=== PATIENT | female | born 1950 | race Caucasian/White ===

== ENCOUNTER 2017-02-25 04:01 | Inpatient (IN) | payer MEDICARE, MEDICAID ==
[~2017-02-25] VITALS: Ht 152.4 cm; Wt 62.6 kg
[~2017-02-25 04:01] MED LIST: AMLO10TA80 PO; ASPI-1159 PO; FOLI1CAP6 PO; NITR0.4T49 SL; PROT40 PO; SIMV20TA6 PO
[2017-02-25] MEDS ORDERED: ONDANSETRON HCL 4MG/2ML VIAL IV STA (04:47)
[2017-02-25 05:45] LABS: HEMATOCRIT. 23.3 % (36.0-48.0); HEMOGLOBIN. 8.1 g/dL (12.0-16.0); MEAN CORPUSCULAR HEMOGLOBIN 33.6 pg (28.0-32.0); MEAN CORPUSCULAR VOLUME 97.2 fL (81.0-99.0); MEAN PLATELET VOLUME 8.2 fl (7.4-10.4); PLATELET 138 x1000/uL (130-400); RED CELL DISTRIBUTION WIDTH 13.9 % (11.6-14.6)
[2017-02-25 05:51] LABS: INR 1.1; PROTHROMBIN TIME 11.8 sec (9.4-11.6)
[2017-02-25 06:02] LABS: CARBON DIOXIDE 25 mEq/L (21-32); CHLORIDE 84 mEq/L (98-107)
[2017-02-25 06:56] LABS: BG BASE EXCESS 4.2 mmol/L (-2.0-2.0); BG CARBOXYHEMOGLOBIN 1.2 % (0.5-1.5); BG DEOXYHEMOGLOBIN 0.6 % (0.0-5.0); BG FRACTION INSPIRED OXYGEN 50; BG HCO3 ACT 29.6 mmol/L (22.0-26.0); BG METHEMOGLOBIN 0.3 % (0.0-1.5); BG OXYGEN SATURATION 99.4 % (92.0-98.5); BG OXYHEMOGLOBIN 97.9 % (94.0-97.0); BG PCO2 47.5 mmHg (35.0-45.0); BG PH 7.413 (7.350-7.450); BG PO2 203.4 mmHg (75.0-100.0); BG SAMPLE SITE LEFT RADIAL; BG TIDAL VOLUME(mL) 600 mL; BG TOTAL HEMOGLOBIN 12.9 g/dL (12.0-18.0); BG VENT MODE VENT - A/C; BG VENT RATE 16 set
[2017-02-25] MEDS ORDERED: DEXTROSE 50% WATER 50ML SYRINGE IV ONE (09:35)
[2017-02-25] MEDS ORDERED: DEXTROSE 50% WATER 50ML SYRINGE IV NR (09:36)
[2017-02-25] MEDS ORDERED: NITROGLYCERIN 0.4MG TABLET SL SL PRN (10:00)
[2017-02-25] MEDS ORDERED: AMLODIPINE 10MG TABLET PO SCH (10:15)
[2017-02-25] MEDS ORDERED: MULTIVITAMINS,THER W-MINERALS TABLET PO SCH (10:30)
[2017-02-25 11:00] VITALS: BP 152/135
[2017-02-25 11:03] LABS: PLATELET ESTIMATE NORMAL
[2017-02-25 11:10] VITALS: BP 152/135
[2017-02-25 12:00] VITALS: BP 169/79
[2017-02-25] MEDS: ASPIRIN 81MG TABLET PO SCH (14:14)
[2017-02-25] MEDS: AMLODIPINE 10MG TABLET PO SCH (14:14)
[2017-02-25] MEDS: PANTOPRAZOLE 40MG DR TABLET PO SCH (14:14)
[2017-02-25] MEDS: FOLIC ACID/VITAMIN B COMP W-C TABLET PO SCH (14:14)
[2017-02-25 16:00] VITALS: BP 187/75
[2017-02-25 20:00] VITALS: BP 177/66
[2017-02-25] MEDS: MORPHINE SULFATE 4 MG/ML CPJ (NOT FOR IM USE) IV PRN (20:52)
[2017-02-25] MEDS ORDERED: NON FORMULARY PATIENT HOME MED EA PO SCH (21:00)
[2017-02-26] VITALS: BP 191/66
[2017-02-26] MEDS ORDERED: ZOLPIDEM TARTRATE 5MG TABLET PO PRN
[2017-02-26] MEDS ORDERED: DEXTROSE 50% WATER 50ML SYRINGE IV PRN
[2017-02-26] MEDS: HYDROCODONE/ACETAMINOPHEN 10/325MG TABLET PO PRN ×2 (01:12→06:01)
[2017-02-26] MEDS: ATORVASTATIN CALCIUM 10MG TABLET PO SCH ×2 (01:12→21:10)
[2017-02-26 04:00] VITALS: BP 177/66
[2017-02-26 06:19] LABS: HEMATOCRIT. 21.3 % (36.0-48.0); HEMOGLOBIN. 7.5 g/dL (12.0-16.0); MEAN CORPUSCULAR HEMOGLOBIN 33.6 pg (28.0-32.0); RED BLOOD CELL COUNT 2.22 mill/uL (4.2-5.4); RED CELL DISTRIBUTION WIDTH 14.2 % (11.6-14.6)
[2017-02-26] MEDS: BLOOD SUGAR DIAGNOSTIC STRIP TEST SCH ×4 (07:40→21:24)
[2017-02-26 08:00] VITALS: BP 181/73
[2017-02-26] MEDS: INSULIN LISPRO 100 UNITS/ML SUBCUT SCH ×4 (08:10→21:24)
[2017-02-26] MEDS ORDERED: ASPIRIN 81MG EC TABLET PO SCH (09:00)
[2017-02-26] MEDS ORDERED: VITAMIN B COMP W C PO SCH (09:00)
[2017-02-26] MEDS ORDERED: FOLIC ACID PO SCH (09:00)
[2017-02-26] MEDS ORDERED: [UNRECOGNIZED DRUG - OTHER] PO SCH (09:00)
[2017-02-26] MEDS ORDERED: PANTOPRAZOLE 40MG DR TABLET PO SCH (09:00)
[2017-02-26] MEDS: AMLODIPINE 10MG TABLET PO SCH (09:12)
[2017-02-26] MEDS: ASPIRIN 81MG TABLET PO SCH (09:12)
[2017-02-26] MEDS: FOLIC ACID/VITAMIN B COMP W-C TABLET PO SCH (09:12)
[2017-02-26] MEDS: PANTOPRAZOLE 40MG DR TABLET PO SCH (09:13)
[2017-02-26 10:54] LABS: PLATELET 151 x1000/uL (130-400); PLATELET ESTIMATE NORMAL
[2017-02-26 10:55] LABS: MEAN PLATELET VOLUME 9.1 fl (7.4-10.4)
[2017-02-26 12:00] VITALS: BP 147/63
[2017-02-26] MEDS ORDERED: LIDOCAINE HCL 1% 20ML VIAL (Pyxis) INJ ONE (14:08)
[2017-02-26 16:00] VITALS: BP 161/74
[2017-02-26 20:00] VITALS: BP 176/77
[2017-02-26] MEDS: MORPHINE SULFATE 4 MG/ML CPJ (NOT FOR IM USE) IV PRN (21:11)
[2017-02-26] MEDS: EPOETIN ALFA 10000UNITS/ML VIAL SUBCUT SCH (21:26)
[2017-02-27] VITALS (9 sets, daily range): BP systolic 100–193; BP diastolic 52–81
[2017-02-27] MEDS: HYDROCODONE/ACETAMINOPHEN 10/325MG TABLET PO PRN ×2 (01:21→08:18)
[2017-02-27 07:36] LABS: BASOPHILS % 0.4 % (0.0-2.0); EOSINOPHILS % 4.2 % (0.0-5.0); LYMPHOCYTES % 17.9 % (20.0-50.0); MEAN CORPUSCULAR HEMOGLOBIN 33.6 pg (28.0-32.0); MONOCYTES % 10.4 % (2.0-8.0); NEUTROPHILS % 67.1 % (40.0-76.0); PLATELET 174 x1000/uL (130-400); RED BLOOD CELL COUNT 2.03 mill/uL (4.2-5.4); RED CELL DISTRIBUTION WIDTH 13.8 % (11.6-14.6)
[2017-02-27] MEDS: BLOOD SUGAR DIAGNOSTIC STRIP TEST SCH ×4 (07:40→21:00)
[2017-02-27 07:53] LABS: HEMATOCRIT. 19.5 % (36.0-48.0); HEMOGLOBIN. 6.8 g/dL (12.0-16.0)
[2017-02-27] MEDS: INSULIN LISPRO 100 UNITS/ML SUBCUT SCH ×4 (08:10→22:05)
[2017-02-27] MEDS: FAMOTIDINE 20MG TABLET PO SCH (08:17)
[2017-02-27] MEDS: ASPIRIN 81MG TABLET PO SCH (08:17)
[2017-02-27] MEDS: FOLIC ACID/VITAMIN B COMP W-C TABLET PO SCH (08:17)
[2017-02-27] MEDS: AMLODIPINE 10MG TABLET PO SCH (08:17)
[2017-02-27] MEDS ORDERED: ONDANSETRON HCL 4MG/2ML VIAL IV PRN (10:00)
[2017-02-27] MEDS: MORPHINE SULFATE 4 MG/ML CPJ (NOT FOR IM USE) IV PRN (16:57)
[2017-02-27 20:28] LABS: HEMATOCRIT 26.8 % (36.0-48.0); HEMOGLOBIN 9.2 g/dL (12.0-16.0)
[2017-02-27] MEDS: CLONIDINE 0.1MG TABLET PO PRN (22:00)
[2017-02-27] MEDS: ATORVASTATIN CALCIUM 10MG TABLET PO SCH (22:00)
[2017-02-28] VITALS (10 sets, daily range): BP systolic 139–178; BP diastolic 55–81
[2017-02-28] MEDS: MORPHINE SULFATE 4 MG/ML CPJ (NOT FOR IM USE) IV PRN ×2 (00:39→06:10)
[2017-02-28] MEDS: CLONIDINE 0.1MG TABLET PO PRN ×2 (06:09→12:04)
[2017-02-28] MEDS: BLOOD SUGAR DIAGNOSTIC STRIP TEST SCH ×4 (06:10→21:00)
[2017-02-28] MEDS: INSULIN LISPRO 100 UNITS/ML SUBCUT SCH ×5 (06:10→22:11)
[2017-02-28 06:31] LABS: BASOPHILS % 0.5 % (0.0-2.0); EOSINOPHILS % 2.5 % (0.0-5.0); HEMATOCRIT. 24.4 % (36.0-48.0); LYMPHOCYTES % 15.7 % (20.0-50.0); MEAN CORPUSCULAR HEMOGLOBIN 33.3 pg (28.0-32.0); MEAN PLATELET VOLUME 8.2 fl (7.4-10.4); MONOCYTES % 11.3 % (2.0-8.0); PLATELET 175 x1000/uL (130-400); RED BLOOD CELL COUNT 2.54 mill/uL (4.2-5.4); RED CELL DISTRIBUTION WIDTH 14.3 % (11.6-14.6)
[2017-02-28 06:50] LABS: HEMOGLOBIN. 8.5 g/dL (12.0-16.0)
[2017-02-28 06:54] LABS: CARBON DIOXIDE 29 mEq/L (21-32); CHLORIDE 95 mEq/L (98-107); TOTAL IRON BINDING CAPACITY 207 ug/dL (250-450)
[2017-02-28] MEDS: FAMOTIDINE 20MG TABLET PO SCH (08:54)
[2017-02-28] MEDS: AMLODIPINE 10MG TABLET PO SCH (08:54)
[2017-02-28] MEDS: FOLIC ACID/VITAMIN B COMP W-C TABLET PO SCH (08:54)
[2017-02-28] MEDS ORDERED: METOCLOPRAMIDE HCL 10MG TABLET PO NR (11:00)
[2017-02-28] MEDS ORDERED: METOCLOPRAMIDE HCL 10MG TABLET PO SCH (11:00)
[2017-02-28] MEDS ORDERED: HYDRALAZINE HCL 25MG TABLET PO SCH (13:03)
[2017-02-28] MEDS ORDERED: HYDRALAZINE HCL 25MG TABLET PO NR (16:15)
[2017-02-28] MEDS: METOCLOPRAMIDE HCL 5MG TABLET PO SCH ×2 (17:40→21:59)
[2017-02-28] MEDS: ATORVASTATIN CALCIUM 10MG TABLET PO SCH (21:58)
[2017-02-28] MEDS: HYDRALAZINE HCL 50MG TABLET PO SCH (21:59)
[2017-02-28] MEDS: EPOETIN ALFA 10000UNITS/ML VIAL SUBCUT SCH (22:00)
[2017-03-01] VITALS (10 sets, daily range): BP systolic 137–179; BP diastolic 40–73
[2017-03-01] MEDS: HYDRALAZINE HCL 50MG TABLET PO SCH ×2 (06:00→17:05)
[2017-03-01] MEDS: BLOOD SUGAR DIAGNOSTIC STRIP TEST SCH ×3 (06:17→17:49)
[2017-03-01 07:28] LABS: BASOPHILS % 0.5 % (0.0-2.0); EOSINOPHILS % 3.1 % (0.0-5.0); HEMATOCRIT. 24.4 % (36.0-48.0); HEMOGLOBIN. 8.4 g/dL (12.0-16.0); LYMPHOCYTES % 13.4 % (20.0-50.0); MEAN CORPUSCULAR HEMOGLOBIN 32.9 pg (28.0-32.0); MEAN PLATELET VOLUME 7.5 fl (7.4-10.4); MONOCYTES % 9.1 % (2.0-8.0); NEUTROPHILS % 73.9 % (40.0-76.0); PLATELET 186 x1000/uL (130-400); RED BLOOD CELL COUNT 2.54 mill/uL (4.2-5.4); RED CELL DISTRIBUTION WIDTH 14.2 % (11.6-14.6)
[2017-03-01] MEDS: FAMOTIDINE 20MG TABLET PO SCH (07:40)
[2017-03-01] MEDS: METOCLOPRAMIDE HCL 5MG TABLET PO SCH ×3 (07:40→17:40)
[2017-03-01] MEDS: INSULIN LISPRO 100 UNITS/ML SUBCUT SCH ×3 (07:48→18:56)
[2017-03-01] MEDS: FOLIC ACID/VITAMIN B COMP W-C TABLET PO SCH (08:54)
[2017-03-01] MEDS: HYDROCODONE/ACETAMINOPHEN 10/325MG TABLET PO PRN ×2 (09:03→15:16)
[2017-03-01] MEDS: AMLODIPINE 10MG TABLET PO SCH (17:57)
== END 2017-03-01 20:30 | disposition home health service (06) | DRG 342 ==
LOC: ER 04:01 → 7WST 05:41 → EDBEDREQTM 05:42 → EDBEDREQ 05:42 → ENRESERV 06:43
PROVIDERS: ADMIT Hospitalist; ATTEND Hospitalist
PROC: 5A1D70Z Performance of Urinary Filtration, Intermittent, Less than 6 Hours Per Day (ICD-10-PCS; 2017-02-25)
PROC: 30233N1 Transfusion of Nonautologous Red Blood Cells into Peripheral Vein, Percutaneous Approach (ICD-10-PCS; principal; 2017-02-26)
PROC: 02HV33Z Insertion of Infusion Device into Superior Vena Cava, Percutaneous Approach (ICD-10-PCS; 2017-02-26)
PROC: B548ZZA Ultrasonography of Superior Vena Cava, Guidance (ICD-10-PCS; 2017-02-26)
PROC: B5181ZA Fluoroscopy of Superior Vena Cava using Low Osmolar Contrast, Guidance (ICD-10-PCS; 2017-02-26)
DX: S42.211A Unspecified displaced fracture of surgical neck of right humerus, initial encounter for closed fracture (principal); E43 Unspecified severe protein-calorie malnutrition; G93.40 Encephalopathy, unspecified; E11.649 Type 2 diabetes mellitus with hypoglycemia without coma; N18.6 End stage renal disease; I12.0 Hypertensive chronic kidney disease with stage 5 chronic kidney disease or end stage renal disease; D64.9 Anemia, unspecified; E11.22 Type 2 diabetes mellitus with diabetic chronic kidney disease; E11.51 Type 2 diabetes mellitus with diabetic peripheral angiopathy without gangrene; W18.39XA Other fall on same level, initial encounter; E87.1 Hypo-osmolality and hyponatremia; I25.10 Atherosclerotic heart disease of native coronary artery without angina pectoris; Z99.2 Dependence on renal dialysis; Z89.511 Acquired absence of right leg below knee; Z79.899 Other long term (current) drug therapy; Z79.82 Long term (current) use of aspirin; Y93.89 Activity, other specified; Y92.89 Other specified places as the place of occurrence of the external cause; Y99.8 Other external cause status; Z68.27 Body mass index [BMI] 27.0-27.9, adult
CPT/HCPCS: 36415; 36569; 36600; 70450; 71010; 73060; 73090; 76937; 77001; 80048; 80053; 80061; 82375; 82533; 82728; 82805; 82962; 83540; 83550; 83605; 83930; 84443; 85014; 85018; 85025; 85610; 86850; 86900; 86920; 93005; 93971; 99285; A4565; A6261; C1725; C1893; J0885; J1815; J2270; J2405; J3490; J7030; J8597; P9016

== ENCOUNTER 2017-03-08 05:50 | Inpatient (IN) | payer MEDICARE, MEDICAID ==
[~2017-03-08] VITALS: Ht 165.1 cm; Wt 61.2 kg
[~2017-03-08 05:50] MED LIST changes: +BLOOD SUGAR DIAGNOSTIC STRIP TEST ONE; +MORPHINE SULFATE 10 MG/ML CPJ IV ONE; +MORPHINE SULFATE 10 MG/ML CPJ ONE; +ONDANSETRON HCL 4MG/2ML VIAL IV ONE; +ONDANSETRON HCL 4MG/2ML VIAL ONE
[2017-03-08] MEDS ORDERED: DIPHENHYDRAMINE 50MG/ML VIAL IV PRN (10:45)
[2017-03-08] MEDS ORDERED: NITROGLYCERIN 0.4MG TABLET SL SL PRN (10:45)
[2017-03-08] MEDS ORDERED: MAGNESIUM/ALUMINUM HYDROXIDE/SIMETHICONE 30ML UDC PO PRN (10:45)
[2017-03-08] MEDS ORDERED: GUAIFENESIN 200MG/10ML SUGAR FREE UDC PO PRN (10:45)
[2017-03-08] MEDS ORDERED: NA PHOS,M-B/NA PHOS,DI-BA ENEMA 118ML PR PRN (10:45)
[2017-03-08] MEDS ORDERED: IPRATROPIUM/ALBUTEROL 0.5-3(2.5)MG/3ML NEB INH PRN (10:45)
[2017-03-08] MEDS ORDERED: DOCUSATE SODIUM 100MG CAPSULE PO PRN (10:45)
[2017-03-08] MEDS ORDERED: ACETAMINOPHEN 325MG TABLET PO PRN ×2 (10:45→12:45)
[2017-03-08 12:00] VITALS: BP 219/79
[2017-03-08] MEDS: AMLODIPINE 10MG TABLET PO SCH (12:05)
[2017-03-08 12:15] VITALS: BP 139/100
[2017-03-08] MEDS ORDERED: LORAZEPAM 2MG/ML CPJ IV PRN ×2 (12:15→16:00)
[2017-03-08] MEDS ORDERED: LORAZEPAM 2MG/ML CPJ ONE (12:25)
[2017-03-08] MEDS ORDERED: DEXTROSE 50% WATER 50ML SYRINGE IV PRN ×2 (12:30→12:45)
[2017-03-08] MEDS ORDERED: SODIUM CHLORIDE 0.9% 1,000 ML IV SCH (12:30)
[2017-03-08] MEDS: INSULIN LISPRO 100 UNITS/ML SUBCUT SCH ×3 (13:10→21:00)
[2017-03-08] MEDS: BLOOD SUGAR DIAGNOSTIC STRIP TEST SCH ×3 (13:15→21:02)
[2017-03-08 13:46] VITALS: BP 219/79
[2017-03-08] MEDS ORDERED: LEVOFLOXACIN 500MG PREMIX 100 ML IV SCH ×2 (14:00→23:00)
[2017-03-08] MEDS: ENOXAPARIN 30MG/0.3ML SYR SUBCUT SCH (14:00)
[2017-03-08 16:00] VITALS: BP 225/90
[2017-03-08 16:24] LABS: CREATINE KINASE 78 IU/L (26-192); CREATINE KINASE MB FRACTION 1.8 ng/mL (0.5-3.6); HDL CHOLESTEROL 86 mg/dL (40-59); LDL CHOLESTEROL 18 mg/dL (5-100); TROPONIN I < 0.02 ng/mL (0.00-0.04)
[2017-03-08] MEDS ORDERED: ZOLPIDEM TARTRATE 5MG TABLET PO PRN (19:00)
[2017-03-08 20:00] VITALS: BP 177/61
[2017-03-08] MEDS: FAMOTIDINE 20MG/2ML VIAL IV SCH (21:09)
[2017-03-08] MEDS: MORPHINE SULFATE 10 MG/ML CPJ IV PRN (22:06)
[2017-03-09] VITALS (9 sets, daily range): BP systolic 126–222; BP diastolic 65–101
[2017-03-09 00:05] LABS: CREATINE KINASE 119 IU/L (26-192); CREATINE KINASE MB FRACTION 1.8 ng/mL (0.5-3.6); TROPONIN I < 0.02 ng/mL (0.00-0.04)
[2017-03-09] MEDS: CLONIDINE 0.1MG TABLET PO PRN ×4 (05:47→20:12)
[2017-03-09] MEDS: MORPHINE SULFATE 10 MG/ML CPJ IV PRN ×2 (05:50→17:59)
[2017-03-09] MEDS: INSULIN LISPRO 100 UNITS/ML SUBCUT SCH ×3 (07:32→20:57)
[2017-03-09] MEDS: BLOOD SUGAR DIAGNOSTIC STRIP TEST SCH ×3 (07:33→20:58)
[2017-03-09] MEDS: ASPIRIN 325MG EC TABLET PO SCH (08:44)
[2017-03-09] MEDS: AMLODIPINE 10MG TABLET PO SCH (08:44)
[2017-03-09] MEDS: FAMOTIDINE 20MG/2ML VIAL IV SCH ×2 (08:44→20:56)
[2017-03-09] MEDS: TRAMADOL 50MG TABLET PO PRN (09:53)
[2017-03-09] MEDS: ONDANSETRON HCL 4MG/2ML VIAL IV PRN ×2 (12:27→20:13)
[2017-03-09] MEDS: ENOXAPARIN 30MG/0.3ML SYR SUBCUT SCH (12:39)
[2017-03-09 18:21] LABS: BASOPHILS % 0.6 % (0.0-2.0); EOSINOPHILS % 3.1 % (0.0-5.0); HEMATOCRIT. 26.6 % (36.0-48.0); MEAN CORPUSCULAR VOLUME 96.9 fL (81.0-99.0); MEAN PLATELET VOLUME 7.7 fl (7.4-10.4); MONOCYTES % 10.3 % (2.0-8.0); PLATELET 152 x1000/uL (130-400); RED BLOOD CELL COUNT 2.74 mill/uL (4.2-5.4); RED CELL DISTRIBUTION WIDTH 14.7 % (11.6-14.6)
[2017-03-10] VITALS: BP 189/68
[2017-03-10] MEDS: TRAMADOL 50MG TABLET PO PRN (00:10)
[2017-03-10 04:00] VITALS: BP 179/62
[2017-03-10] MEDS: CLONIDINE 0.1MG TABLET PO PRN (04:18)
[2017-03-10 07:22] LABS: BASOPHILS % 0.5 % (0.0-2.0); EOSINOPHILS % 3.4 % (0.0-5.0); HEMATOCRIT. 25.1 % (36.0-48.0); HEMOGLOBIN. 8.4 g/dL (12.0-16.0); LYMPHOCYTES % 20.5 % (20.0-50.0); MEAN CORPUSCULAR HEMOGLOBIN 32.1 pg (28.0-32.0); MEAN CORPUSCULAR VOLUME 96.1 fL (81.0-99.0); MEAN PLATELET VOLUME 7.8 fl (7.4-10.4); MONOCYTES % 10.7 % (2.0-8.0); NEUTROPHILS % 64.9 % (40.0-76.0); PLATELET 161 x1000/uL (130-400); RED BLOOD CELL COUNT 2.61 mill/uL (4.2-5.4); RED CELL DISTRIBUTION WIDTH 14.4 % (11.6-14.6)
[2017-03-10] MEDS: BLOOD SUGAR DIAGNOSTIC STRIP TEST SCH ×2 (07:40→12:28)
[2017-03-10] MEDS: INSULIN LISPRO 100 UNITS/ML SUBCUT SCH ×2 (07:44→12:28)
[2017-03-10 08:00] VITALS: BP 171/67
[2017-03-10] MEDS: ASPIRIN 325MG EC TABLET PO SCH (09:18)
[2017-03-10] MEDS: AMLODIPINE 10MG TABLET PO SCH (09:18)
[2017-03-10] MEDS: FAMOTIDINE 20MG/2ML VIAL IV SCH (09:21)
[2017-03-10 10:53] VITALS: BP 158/68
[2017-03-10] MEDS ORDERED: HYDRALAZINE HCL 100MG TABLET PO NR (11:00)
[2017-03-10 11:07] VITALS: BP 158/68
[2017-03-10 12:00] VITALS: BP 149/59
[2017-03-10] MEDS ORDERED: LEVOFLOXACIN 250MG TABLET PO SCH (14:00)
[2017-03-10] MEDS ORDERED: HYDRALAZINE HCL 100MG TABLET PO SCH (14:00)
[2017-03-11] MEDS ORDERED: FAMOTIDINE 20MG TABLET PO SCH (09:00)
== END 2017-03-10 14:50 | disposition home or self-care (01) | DRG 420 ==
LOC: ER 05:50 → 7WST 05:51 → ENRESERV 10:12 → SUPCPDRO 10:43
PROVIDERS: ADMIT Internal Medicine; ATTEND Internal Medicine
PROC: 5A1D70Z Performance of Urinary Filtration, Intermittent, Less than 6 Hours Per Day (ICD-10-PCS; principal; 2017-03-08)
DX: E11.649 Type 2 diabetes mellitus with hypoglycemia without coma (principal); G93.40 Encephalopathy, unspecified; E11.22 Type 2 diabetes mellitus with diabetic chronic kidney disease; I12.0 Hypertensive chronic kidney disease with stage 5 chronic kidney disease or end stage renal disease; N18.6 End stage renal disease; E83.52 Hypercalcemia; E87.1 Hypo-osmolality and hyponatremia; D64.9 Anemia, unspecified; R45.1 Restlessness and agitation; Z89.519 Acquired absence of unspecified leg below knee; Z99.2 Dependence on renal dialysis
CPT/HCPCS: 36415; 70551; 71010; 73060; 73090; 80048; 80061; 82550; 82553; 82962; 83036; 84484; 85025; 93005; 93970; 99285; J1200; J1650; J1956; J2060; J2270; J2405; J3490; J7030; J7050; L3670

== ENCOUNTER 2018-03-10 16:28 | Emergency (ER) | payer MEDICARE, MEDICAID ==
[~2018-03-10] VITALS: Ht 152.4 cm; Wt 62.0 kg
[~2018-03-10 16:28] MED LIST changes: -BLOOD SUGAR DIAGNOSTIC STRIP TEST ONE; -MORPHINE SULFATE 10 MG/ML CPJ IV ONE; -MORPHINE SULFATE 10 MG/ML CPJ ONE; -ONDANSETRON HCL 4MG/2ML VIAL IV ONE; -ONDANSETRON HCL 4MG/2ML VIAL ONE
[2018-03-10 16:34] VITALS: BP 124/76
== END 2018-03-10 19:30 | disposition left against medical advice (07) ==
LOC: ER 16:28
DX: Z53.21 Procedure and treatment not carried out due to patient leaving prior to being seen by health care provider (principal); E11.9 Type 2 diabetes mellitus without complications
CPT/HCPCS: 82962